=== PATIENT | male | born 1950 | race Caucasian/White ===

== ENCOUNTER 2016-03-27 11:18 | Day surgery (SDC) | payer MEDICARE, OTHER ==
[2016-03-27] MEDS ORDERED: LACTATED RINGERS 1,000 ML IV ONE ×3 (11:32→12:48)
[2016-03-27] MEDS ORDERED: MIDAZOLAM 2 MG/2 ML VIAL IVP ONE (12:20)
[2016-03-27] MEDS ORDERED: fentaNYL 250 MCG/5 ML VIAL IVP ONE (12:20)
== END 2016-03-27 11:19 | disposition home or self-care (01) ==
PROC: 0DBL8ZZ Excision of Transverse Colon, Via Natural or Artificial Opening Endoscopic (ICD-10-PCS; principal; 2016-03-27 13:30)
DX: Z12.11 Encounter for screening for malignant neoplasm of colon (principal); D12.3 Benign neoplasm of transverse colon; K57.30 Diverticulosis of large intestine without perforation or abscess without bleeding; Q27.33 Arteriovenous malformation of digestive system vessel; K64.8 Other hemorrhoids
CPT/HCPCS: 45385; J3010; J7120

== ENCOUNTER 2016-05-29 13:48 | Outpatient (CLI) | payer MEDICARE, OTHER | END 2016-05-29 13:49 | disposition home or self-care (01) | DX: I10 Essential (primary) hypertension (principal); N40.0 Benign prostatic hyperplasia without lower urinary tract symptoms; F32.9 Major depressive disorder, single episode, unspecified ==

== ENCOUNTER 2016-10-30 08:00 | Outpatient (CLI) | payer MEDICARE, OTHER ==
[2016-10-30 18:49] LABS: BASOPHILS % (AUTO) 0.7 %; EOSINOPHILS # (AUTO) 0.1 10^3/uL (0.0-0.7); HCT - HEMATOCRIT 38.8 % (42.0-52.0); HGB - HEMOGLOBIN 13.4 g/dL (14.0-18.0); LYMPHOCYTES # (AUTO) 1.8 10^3/uL (1.5-3.5); LYMPHOCYTES % (AUTO) 38.5 %; MEAN CORPUSCULAR HEMOGLOBIN 31.3 pg (27.0-31.0); MEAN CORPUSCULAR HGB CONC 34.6 g/dL (32.0-36.0); MEAN CORPUSCULAR VOLUME 90.4 fL (80.0-94.0); MEAN PLATELET VOLUME 8.4 fL (7.4-11.4); MONOCYTES # (AUTO) 0.6 10^3/uL (0.0-1.0); MONOCYTES % (AUTO) 12.2 %; NEUTROPHILS # (AUTO) 2.1 10^3/uL (1.5-6.6); NEUTROPHILS % (AUTO) 45.6 %; NUCLEATED RED BLOOD CELLS AUTO 0.1 /100WBC; RED BLOOD COUNT 4.29 10^6/uL (4.70-6.10); RED CELL DISTRIBUTION WIDTH 12.7 % (12.0-15.0); UNCORRECTED WHITE BLOOD COUNT 4.7 x10^3/uL; WHITE BLOOD COUNT 4.7 x10^3/uL (4.8-10.8)
[2016-10-30 19:02] LABS: ALBUMIN/GLOBULIN RATIO 1.7 (1.0-2.2); BILIRUBIN,TOTAL 0.7 mg/dL (0.2-1.0); CALCIUM 9.2 mg/dL (8.5-10.3); POTASSIUM 4.3 mmol/L (3.5-5.0); TOTAL PROTEIN 6.5 g/dL (6.7-8.2)
== END 2016-10-30 08:01 | disposition home or self-care (01) ==
LOC: LAB.S 08:00
PROVIDERS: ATTEND Nurse Practitioner Family
DX: E87.1 Hypo-osmolality and hyponatremia (principal); D64.9 Anemia, unspecified
CPT/HCPCS: 36415; 80053; 85025

== ENCOUNTER 2016-11-03 13:37 | Outpatient (CLI) | payer MEDICARE, OTHER ==
[2016-11-03 18:33] LABS: CALCIUM 9.3 mg/dL (8.5-10.3); POTASSIUM 4.2 mmol/L (3.5-5.0)
== END 2016-11-03 13:38 | disposition home or self-care (01) ==
LOC: LAB.F 13:37
PROVIDERS: ATTEND Nurse Practitioner Family
DX: E87.1 Hypo-osmolality and hyponatremia (principal)
CPT/HCPCS: 36415; 80048

== ENCOUNTER 2016-11-08 15:47 | Outpatient (CLI) | payer MEDICARE, OTHER ==
[2016-11-08 18:12] LABS: CALCIUM 9.4 mg/dL (8.5-10.3); CREATININE 1.3 mg/dL (0.6-1.2)
== END 2016-11-08 15:48 | disposition home or self-care (01) ==
LOC: LAB.F 15:47
PROVIDERS: ATTEND Nurse Practitioner Family
DX: E87.1 Hypo-osmolality and hyponatremia (principal)
CPT/HCPCS: 36415; 80048

== ENCOUNTER 2016-11-27 07:01 | Outpatient (CLI) | payer MEDICARE, OTHER ==
[2016-11-27 18:44] LABS: CREATININE 1.1 mg/dL (0.6-1.2); POTASSIUM 3.9 mmol/L (3.5-5.0)
== END 2016-11-27 07:02 | disposition home or self-care (01) ==
LOC: LAB.S 07:01
PROVIDERS: ATTEND Nurse Practitioner Family
DX: E87.1 Hypo-osmolality and hyponatremia (principal)
CPT/HCPCS: 36415; 80048

== ENCOUNTER 2017-02-20 10:25 | Outpatient (CLI) | payer MEDICARE, OTHER ==
[2017-02-20 17:50] LABS: CALCIUM 10.1 mg/dL (8.5-10.3); CREATININE 1.3 mg/dL (0.6-1.2); POTASSIUM 4.3 mmol/L (3.5-5.0)
== END 2017-02-20 10:26 | disposition home or self-care (01) ==
LOC: LAB.F 10:25
PROVIDERS: ATTEND Nurse Practitioner Family
DX: E87.1 Hypo-osmolality and hyponatremia (principal)
CPT/HCPCS: 36415; 80048

== ENCOUNTER 2017-05-21 21:34 | Outpatient (CLI) | payer MEDICARE, OTHER ==
[2017-05-21 17:43] LABS: BASOPHILS % (AUTO) 0.8 %; EOSINOPHILS # (AUTO) 0.1 10^3/uL (0.0-0.7); EOSINOPHILS % (AUTO) 2.8 %; HGB - HEMOGLOBIN 12.7 g/dL (14.0-18.0); LYMPHOCYTES % (AUTO) 40.8 %; MEAN CORPUSCULAR HEMOGLOBIN 30.4 pg (27.0-31.0); MEAN CORPUSCULAR HGB CONC 33.6 g/dL (32.0-36.0); MEAN CORPUSCULAR VOLUME 90.5 fL (80.0-94.0); MEAN PLATELET VOLUME 8.6 fL (7.4-11.4); MONOCYTES # (AUTO) 0.6 10^3/uL (0.0-1.0); MONOCYTES % (AUTO) 11.8 %; NEUTROPHILS # (AUTO) 2.2 10^3/uL (1.5-6.6); NEUTROPHILS % (AUTO) 43.8 %; PLT - PLATELET COUNT 228 10^3/uL (130-450); RED BLOOD COUNT 4.18 10^6/uL (4.70-6.10); RED CELL DISTRIBUTION WIDTH 12.9 % (12.0-15.0)
[2017-05-21 18:06] LABS: ALBUMIN 3.8 g/dL (3.2-5.5); ALBUMIN/GLOBULIN RATIO 1.5 (1.0-2.2); BILIRUBIN,TOTAL 0.6 mg/dL (0.2-1.0); CALCIUM 9.4 mg/dL (8.5-10.3); TOTAL PROTEIN 6.3 g/dL (6.7-8.2)
== END 2017-05-21 21:35 | disposition home or self-care (01) ==
LOC: LAB.S 21:34
PROVIDERS: ATTEND Nurse Practitioner Family
DX: E87.1 Hypo-osmolality and hyponatremia (principal); E21.3 Hyperparathyroidism, unspecified; Z85.528 Personal history of other malignant neoplasm of kidney
CPT/HCPCS: 36415; 80053; 85025

== ENCOUNTER 2017-06-22 13:31 | Outpatient (CLI) | payer MEDICARE, OTHER ==
[2017-06-22 17:44] LABS: BASOPHILS % (AUTO) 0.6 %; EOSINOPHILS # (AUTO) 0.1 10^3/uL (0.0-0.7); EOSINOPHILS % (AUTO) 2.1 %; HGB - HEMOGLOBIN 12.3 g/dL (14.0-18.0); LYMPHOCYTES # (AUTO) 1.8 10^3/uL (1.5-3.5); LYMPHOCYTES % (AUTO) 28.2 %; MEAN CORPUSCULAR HEMOGLOBIN 31.1 pg (27.0-31.0); MEAN CORPUSCULAR HGB CONC 34.7 g/dL (32.0-36.0); MEAN CORPUSCULAR VOLUME 89.6 fL (80.0-94.0); MEAN PLATELET VOLUME 8.9 fL (7.4-11.4); MONOCYTES # (AUTO) 0.6 10^3/uL (0.0-1.0); NEUTROPHILS # (AUTO) 3.8 10^3/uL (1.5-6.6); NEUTROPHILS % (AUTO) 60.1 %; PLT - PLATELET COUNT 199 10^3/uL (130-450); RED BLOOD COUNT 3.97 10^6/uL (4.70-6.10); RED CELL DISTRIBUTION WIDTH 12.3 % (12.0-15.0); WHITE BLOOD COUNT 6.3 x10^3/uL (4.8-10.8)
[2017-06-22 18:30] LABS: % IRON SATURATION 24 % (20-50); IRON 79 ug/dL (45-182); TOTAL IRON BINDING CAPACITY 325 ug/dL (250-450); TRANSFERRIN 232 mg/dL (180-329)
[2017-06-22 18:32] LABS: THYROID STIMULATING HORMONE 3.14 uIU/mL (0.34-5.60)
[2017-06-22 18:39] LABS: FERRITIN 124.4 ng/mL (23.9-336.2)
== END 2017-06-22 13:32 | disposition home or self-care (01) ==
LOC: LAB.F 13:31
PROVIDERS: ATTEND Nurse Practitioner Family
DX: D64.9 Anemia, unspecified (principal); Z12.5 Encounter for screening for malignant neoplasm of prostate
CPT/HCPCS: 82607; 82728; 83540; 84443; 84466; 85025; G0103; 36415; 84153

== ENCOUNTER 2017-07-25 13:23 | Outpatient (CLI) | payer MEDICARE, OTHER ==
[2017-07-25 18:04] LABS: CALCIUM 8.9 mg/dL (8.5-10.3)
== END 2017-07-25 13:24 | disposition home or self-care (01) ==
LOC: LAB.F 13:23
PROVIDERS: ATTEND Nurse Practitioner Family
DX: E87.1 Hypo-osmolality and hyponatremia (principal)
CPT/HCPCS: 36415; 80048

== ENCOUNTER 2017-08-03 08:42 | Outpatient (CLI) | payer MEDICARE, OTHER ==
--- NOTE | 2017-08-03 13:55 | XRAY Report ---
TWO VIEW CHEST: 08/03/2017 CLINICAL INDICATION: Hyponatremia. COMPARISON: Frontal and lateral views of the chest are compared to previous films of 05/12/2014. FINDINGS: The cardiac silhouette is within normal limits. The lungs remain hyperinflated, but clear. No pulmonary nodule or mass lesion is seen. No effusion or pneumothorax is present. IMPRESSION: STABLE HYPERINFLATION. TD: 08/03/2017 11:21
== END 2017-08-03 08:43 | disposition home or self-care (01) ==
LOC: DI.S 08:42
PROVIDERS: ATTEND Nurse Practitioner Family
DX: J98.4 Other disorders of lung (principal)
CPT/HCPCS: 71046

== ENCOUNTER 2017-08-09 13:15 | Outpatient (CLI) | payer MEDICARE, OTHER ==
[2017-08-09 17:46] LABS: BASOPHILS % (AUTO) 0.4 %; EOSINOPHILS # (AUTO) 0.1 10^3/uL (0.0-0.7); EOSINOPHILS % (AUTO) 1.5 %; HGB - HEMOGLOBIN 12.8 g/dL (14.0-18.0); LYMPHOCYTES # (AUTO) 1.7 10^3/uL (1.5-3.5); LYMPHOCYTES % (AUTO) 19.4 %; MEAN CORPUSCULAR HEMOGLOBIN 30.8 pg (27.0-31.0); MEAN CORPUSCULAR HGB CONC 33.8 g/dL (32.0-36.0); MEAN CORPUSCULAR VOLUME 91.3 fL (80.0-94.0); MONOCYTES # (AUTO) 0.8 10^3/uL (0.0-1.0); MONOCYTES % (AUTO) 8.8 %; NEUTROPHILS # (AUTO) 6.2 10^3/uL (1.5-6.6); NEUTROPHILS % (AUTO) 69.9 %; PLT - PLATELET COUNT 207 10^3/uL (130-450); RED BLOOD COUNT 4.14 10^6/uL (4.70-6.10); RED CELL DISTRIBUTION WIDTH 12.9 % (12.0-15.0); WHITE BLOOD COUNT 8.9 x10^3/uL (4.8-10.8)
[2017-08-09 18:41] LABS: ALBUMIN 3.9 g/dL (3.2-5.5); ALBUMIN/GLOBULIN RATIO 1.6 (1.0-2.2); BILIRUBIN,TOTAL 0.6 mg/dL (0.2-1.0); TOTAL PROTEIN 6.3 g/dL (6.7-8.2)
== END 2017-08-09 13:16 | disposition home or self-care (01) ==
LOC: LAB.F 13:15
PROVIDERS: ATTEND Nurse Practitioner Family
DX: R97.20 Elevated prostate specific antigen [PSA] (principal); E87.1 Hypo-osmolality and hyponatremia
CPT/HCPCS: 36415; 80053; 82607; 83519; 83970; 85025

== ENCOUNTER 2017-11-02 20:14 | Emergency (ER) | payer MEDICARE, OTHER ==
[2017-11-02 20:27] VITALS: BP 155/74
--- NOTE | 2017-11-02 21:35 | ED Physician Documentation ---
PD HPI UPPER EXT INJURY - Stated complaint Stated Complaint: RT THUMB INJ - Chief complaint Chief Complaint: Laceration - History obtained from History obtained from: Patient - History of Present Illness Location: Right, Finger (thumb tip, not at nailbed.) Type of injury: Laceration (cleaning a knife and it slipped and cut his thumb tip. It bled well and seemed deep, so to ER. It has stopped bleeding enroute and appears closed here in ED.) Where injury occurred: Home Timing - onset: Today Timing - details: Abrupt onset Worsened by: Palpating Associated symptoms: No: Weakness, Numbness Similar symptoms before: Has not had sx before Recently seen: Not recently seen Review of Systems Skin: reports: Laceration (s). denies: Rash, Abrasion (s) Neurologic: denies: Focal weakness, Numbness, Near syncope PD PAST MEDICAL HISTORY - Past Medical History Past Medical History: Yes Cardiovascular: Hypertension Respiratory: None Endocrine/Autoimmune: None GI: None : None HEENT: None Psych: None Musculoskeletal: Osteoarthritis Derm: None - Past Surgical History Past Surgical History: Yes General: Colonoscopy Ortho: Hip replacement Neuro: Other HEENT: Cataracts, Tonsil/Adenoidectomy - Present Medications Home Medications: Ambulatory Orders Medication Instructions Recorded Confirmed Amlodipine Besylate 5 mg PO DAILY 05/25/14 03/24/16 - Allergies Allergies/Adverse Reactions: Allergies Allergy/AdvReac Type Severity Reaction Status Date / Time codeine [Codeine] AdvReac Intermediate Nausea Verified 11/02/17 20:29 - Social History Does the pt smoke?: No Smoking Status: Never smoker Does the pt drink ETOH?: No Does the pt have substance abuse?: No - Immunizations Immunizations are current?: Yes - POLST Patient has POLST: No PD ED PE NORMAL - Vitals Vital signs reviewed: Yes - General General: Alert and oriented X 3, No acute distress, Well developed/nourished - Derm Derm: Normal color, Warm and dry - Extremities Extremities: Other (right thumb with clean edged lac, no FB and no bleeding at this time. Edges are approximated. The lac is distal palmar fat pad. Does not cross IP area and is not at nailbed. ) - Neuro Neuro: No motor deficit, No sensory deficit Results - Vitals Vitals: Oxygen O2 Source [With Activity] Room air O2 Source [Without Activity] Room air O2 Source Room air PD MEDICAL DECISION MAKING - ED course Complexity details: considered differential (the lac is sharp edged and has closed well with pressure and early clotting. It does not cross joint. It can be treated with steristrips and glue. ), d/w patient - Sepsis Event Vital Signs: Oxygen O2 Source [With Activity] Room air O2 Source [Without Activity] Room air O2 Source Room air Departure - Departure Disposition: 01 Home, Self Care Clinical Impression: Thumb laceration Qualifiers: Encounter type: initial encounter Damage to nail status: without damage Foreign body presence: without foreign body Laterality: right Qualified Code(s) : S61.011A - Laceration without foreign body of right thumb without damage to nail, initial encounter Condition: Stable Record reviewed to determine appropriate education?: Yes Instructions: ED Laceration Hand Follow-Up: Tiffani Perkins ARNP [Primary Care Provider] - Comments: Keep the area clean and dry. Allow the glue and Steri-Strips to fall off on their own after several days or more. That should be time enough for this to seal up. Use Tylenol or ibuprofen if needed for pains. Recheck if signs of infection. Discharge Date/Time: 11/02/17 22:08
== END 2017-11-02 22:08 | disposition home or self-care (01) ==
LOC: ED 20:14
DX: S61.011A Laceration without foreign body of right thumb without damage to nail, initial encounter (principal); I10 Essential (primary) hypertension; W26.0XXA Contact with knife, initial encounter; Y92.009 Unspecified place in unspecified non-institutional (private) residence as the place of occurrence of the external cause
CPT/HCPCS: 99282; 99283

== ENCOUNTER 2017-12-18 13:40 | Outpatient (CLI) | payer MEDICARE, OTHER | END 2017-12-18 13:41 | disposition home or self-care (01) | LOC: RT.S 13:40 | PROVIDERS: ATTEND Nurse Practitioner Family | DX: Z01.810 Encounter for preprocedural cardiovascular examination (principal); M16.12 Unilateral primary osteoarthritis, left hip | CPT/HCPCS: 93005 ==

== ENCOUNTER 2017-12-19 07:17 | Outpatient (CLI) | payer MEDICARE, OTHER ==
[2017-12-19 11:08] LABS: BASOPHILS % (AUTO) 0.2 %; EOSINOPHILS # (AUTO) 0.2 10^3/uL (0.0-0.7); EOSINOPHILS % (AUTO) 2.7 %; HGB - HEMOGLOBIN 13.2 g/dL (14.0-18.0); LYMPHOCYTES # (AUTO) 1.1 10^3/uL (1.5-3.5); LYMPHOCYTES % (AUTO) 12.6 %; MEAN CORPUSCULAR HEMOGLOBIN 32.1 pg (27.0-31.0); MEAN CORPUSCULAR HGB CONC 34.5 g/dL (32.0-36.0); MEAN CORPUSCULAR VOLUME 92.9 fL (80.0-94.0); MEAN PLATELET VOLUME 9.3 fL (7.4-11.4); MONOCYTES # (AUTO) 0.9 10^3/uL (0.0-1.0); MONOCYTES % (AUTO) 10.1 %; NEUTROPHILS # (AUTO) 6.5 10^3/uL (1.5-6.6); NEUTROPHILS % (AUTO) 74.4 %; PLT - PLATELET COUNT 235 10^3/uL (130-450); RED BLOOD COUNT 4.12 10^6/uL (4.70-6.10); RED CELL DISTRIBUTION WIDTH 12.5 % (12.0-15.0); WHITE BLOOD COUNT 8.7 x10^3/uL (4.8-10.8)
[2017-12-19 11:20] LABS: ALBUMIN 4.2 g/dL (3.2-5.5); ALBUMIN/GLOBULIN RATIO 1.6 (1.0-2.2); ALKALINE PHOSPHATASE 72 IU/L (42-121); ALT ALANINE AMINOTRANSFERASE 23 IU/L (10-60); AST ASPARTATE AMINOTRANSFERASE 21 IU/L (10-42); BILIRUBIN,TOTAL 0.8 mg/dL (0.2-1.0); BUN - BLOOD UREA NITROGEN 20 mg/dL (6-20); CALCIUM 9.4 mg/dL (8.5-10.3); CARBON DIOXIDE - CO2 29 mmol/L (21-32); CHLORIDE 103 mmol/L (101-111); CHOL/HDL RATIO 3.1 (<5.0); CHOLESTEROL 144 mg/dL; GFR - MDRD 74 (>89); GLUCOSE 96 mg/dL (70-100); HDL CHOLESTEROL 47 mg/dL; LDL CHOLESTEROL,CALCULATED 86 mg/dL; LDL/HDL RATIO 1.8 (<3.6); SODIUM 138 mmol/L (135-145); TOTAL PROTEIN 6.9 g/dL (6.7-8.2); VLDL CHOLESTEROL 11 mg/dL
== END 2017-12-19 07:18 | disposition home or self-care (01) ==
LOC: LAB.F 07:17
PROVIDERS: ATTEND Nurse Practitioner Family
DX: E87.1 Hypo-osmolality and hyponatremia (principal); I10 Essential (primary) hypertension; D64.9 Anemia, unspecified
CPT/HCPCS: 36415; 80053; 80061; 83721; 85025

== ENCOUNTER 2018-01-28 08:58 | Outpatient (CLI) | payer MEDICARE, OTHER | END 2018-01-28 08:59 | disposition home or self-care (01) | LOC: LAB 08:58 | PROVIDERS: ATTEND Orthopaedic Surgery | DX: Z01.812 Encounter for preprocedural laboratory examination (principal); M16.12 Unilateral primary osteoarthritis, left hip | CPT/HCPCS: 36415; 86850; 86900; 86901 ==

== ENCOUNTER 2018-01-29 08:56 | Inpatient (IN) | payer MEDICARE, OTHER ==
[~2018-01-29 08:56] MED LIST: LACTATED RINGERS 1,000 ML IV ONE; ceFAZolin 2 GM/50 ML 2 GM/50 ML BAG IV ONE
[2018-01-29] MEDS ORDERED: EPINEPHrine 1 MG/ML AMP ONE (09:02)
[2018-01-29] MEDS ORDERED: ROPIVACAINE 0.5% PF 20 ML AMPULE ONE (09:03)
[2018-01-29] MEDS ORDERED: KETOROLAC 15 MG/ML VIAL ONE (09:03)
[2018-01-29] MEDS ORDERED: BUPIVACAINE 0.5%-EPI 1:200000 PF 30 ML VIAL ONE (09:05)
--- NOTE | 2018-01-29 09:22 | ANESTHESIA ---
Pre-Anesthesia VS, & Labs - Diagnosis Left hip osteoarthritis - Procedure Left hip anterior arthroplasty Height 5 ft 9 in Body Mass Index 27.3 - Lab Results Lab results reviewed: Yes Home Medications and Allergies Amlodipine Besylate 5 mg PO DAILY 05/25/14 Allergies/Adverse Reactions: Allergies Allergy/AdvReac Type Severity Reaction Status Date / Time codeine [Codeine] AdvReac Intermediate Nausea Verified 11/02/17 20:29 Anes History & Medical History - Anesthetic History Anesthesia Complications: reports: No previous complications, Post-Operative Nausea/Vomiting Family history of Anesthesia Complications: Denies Family history of Malignant Hyperthermia: Denies - Medical History Cardiovascular: reports: Hypertension Pulmonary: reports: None Gastrointestinal: reports: None Urinary: reports: None, Benign prostate hypertrophy Neuro: reports: Other (Anxiety, claustrophobia) Musculoskeletal: reports: Osteoarthritis, Chronic back pain Endocrine/Autoimmune: reports: None Blood Disorders: reports: None Skin: reports: None Smoking Status: Former smoker Psychosocial: reports: Anxiety - Surgical History General: Colonoscopy Eyes Ears Nose Throat (EENT): Cataracts, Tonsil/Adenoidectomy Urologic: Nephrectomy, Prostatic surgery Neurologic: Other (Back infusion) Orthopedic: Hip replacement Exam General: Alert, Oriented x3 Dental: WNL Mouth Opening: Greater than 4 Fingerbreadths Neck Mobility: Normal Mallampati classification: II Thyromental Distance: greater than 6 cm Respiratory: Lungs clear Cardiovascular: Regular rate Neurological: Normal speech Mental/Cognitive Status: Alert/Oriented X3 Cognitive Status: Within normal limits Plan Anesthesia Type: General Consent for Procedure(s) Verified and Reviewed: Yes Code Status: Attempt Resuscitation ASA classification: 2-Mild systemic disease Is this case an emergency?: No
--- NOTE | 2018-01-29 09:42 | ANESTHESIA ---
Pre-Anesthesia VS, & Labs - Diagnosis Left hip osteoarthritis - Procedure Left hip anterior arthroplasty Height 5 ft 9 in Body Mass Index 27.3 - NPO >8 hours - Lab Results Fish Bones: 01/31/18 05:35 01/30/18 05:45 Home Medications and Allergies Home Medications: Ambulatory Orders Ibuprofen [Advil] 200 - 400 mg PO Q6H PRN 01/30/18 Amlodipine Besylate 5 mg PO DAILY 05/25/14 Allergies/Adverse Reactions: Allergies Allergy/AdvReac Type Severity Reaction Status Date / Time codeine [Codeine] AdvReac Intermediate Nausea Verified 01/29/18 09:47 Anes History & Medical History - Anesthetic History Anesthesia Complications: reports: No previous complications - Medical History Cardiovascular: reports: Hypertension Pulmonary: reports: None Gastrointestinal: reports: None Urinary: reports: None Neuro: reports: None Musculoskeletal: reports: Osteoarthritis, Chronic back pain Endocrine/Autoimmune: reports: None Blood Disorders: reports: None Skin: reports: None Smoking Status: Never smoker Psychosocial: reports: No issues indicated - Surgical History General: Colonoscopy Eyes Ears Nose Throat (EENT): Cataracts, Tonsil/Adenoidectomy Urologic: Nephrectomy, Prostatic surgery Neurologic: Other Orthopedic: Hip replacement Exam General: Alert Mouth Opening: Greater than 4 Fingerbreadths Neck Mobility: Normal Mallampati classification: II Thyromental Distance: greater than 6 cm Respiratory: Lungs clear Cardiovascular: Regular rate Plan Anesthesia Type: General Consent for Procedure(s) Verified and Reviewed: Yes Code Status: Attempt Resuscitation ASA classification: 2-Mild systemic disease Is this case an emergency?: No
[2018-01-29] MEDS ORDERED: EPINEPHrine 1 MG/ML AMP IVP ONE (11:07)
[2018-01-29] MEDS ORDERED: MORPHINE PF 5 MG/10 ML AMP SUBQ ONE (11:07)
[2018-01-29] MEDS ORDERED: ROPIVACAINE 0.2% PF 20 ML AMPULE SUBQ ONE (11:07)
[2018-01-29] MEDS ORDERED: KETOROLAC 15 MG/ML VIAL IVP ONE (11:07)
[2018-01-29] MEDS ORDERED: BUPIVACAINE 0.5%-EPI 1:200000 PF 10 ML VIAL SUBQ ONE ×2 (11:08)
[2018-01-29] MEDS ORDERED: LACTATED RINGERS 1,000 ML IV ONE (11:19)
--- NOTE | 2018-01-29 12:46 | OPERATIVE REPORT ---
Operative Report - General Admit Date: 01/29/18 Procedure Date: 01/29/18 Planned Procedure: Left total hip arthroplasty Pre-Op Diagnosis: DJD left hip Procedure Performed: Left total hip arthroplasty Post Op Diagnosis: same - Procedure Note Primary Surgeon: gilmar Anesthesia Provider: Gen Dr. quintanilla Anesthesia Technique: General ET tube Estimated Blood Loss (mL): 200
[2018-01-29] MEDS ORDERED: ONDANSETRON 4 MG/2 ML VIAL IVP PRN (12:47)
[2018-01-29] MEDS ORDERED: BISACODYL 10 MG SUPP PR PRN (12:47)
[2018-01-29] MEDS ORDERED: PROCHLORPERAZINE 10 MG/2 ML VIAL IVP PRN (12:47)
[2018-01-29] MEDS ORDERED: PROPOFOL 200 MG/20 ML VIAL IVP ONE (12:51)
[2018-01-29] MEDS ORDERED: ONDANSETRON 4 MG/2 ML VIAL IVP ONE (12:51)
[2018-01-29] MEDS ORDERED: ceFAZolin 2 GM/50 ML 2 GM/50 ML BAG IV ONE (12:51)
[2018-01-29] MEDS ORDERED: ePHEDrine 50 MG/ML VIAL IVP ONE (12:51)
[2018-01-29] MEDS ORDERED: GLYCOPYRROLATE 1 MG/5 ML VIAL IVP ONE (12:51)
[2018-01-29] MEDS ORDERED: MORPHINE 10 MG/ML VIAL IVP ONE (12:51)
[2018-01-29] MEDS ORDERED: ROCURONIUM 50 MG/5 ML VIAL IVP ONE (12:51)
[2018-01-29] MEDS ORDERED: fentaNYL 100 MCG/2 ML VIAL IVP ONE (12:51)
[2018-01-29] MEDS ORDERED: TRANEXAMIC ACID 1,000 MG/10 ML VIAL IV ONE (12:51)
[2018-01-29] MEDS ORDERED: ceFAZolin 2 GM/50 ML 2 GM/50 ML BAG IV SCH (13:00)
[2018-01-29] MEDS: HYDROmorphone 0.5 MG/0.5 ML SYRINGE IVP PRN (13:09)
[2018-01-29] MEDS ORDERED: HYDROmorphone 0.5 MG/0.5 ML SYRINGE ONE ×2 (13:10→13:18)
[2018-01-29] MEDS ORDERED: ONDANSETRON 4 MG/2 ML VIAL ONE (13:26)
[2018-01-29] MEDS ORDERED: fentaNYL 100 MCG/2 ML VIAL ONE (13:36)
[2018-01-29] MEDS ORDERED: KETOROLAC 30 MG/ML VIAL ONE (13:41)
[2018-01-29] MEDS ORDERED: ACETAMINOPHEN 1,000 MG/100 ML 100 ML IV ONE (13:41)
--- NOTE | 2018-01-29 13:49 | XRAY Report ---
Reason: post op Procedure Date: 01/29/2018 Accession Number: [id number] / [id number] Procedure: XR - Hip w/Pelvis 2-3V LT CPT Code: FULL RESULT: EXAM: LEFT HIP AND PELVIS RADIOGRAPHY EXAM DATE: 01/29/2018 01:08 PM. HISTORY: Severe left hip osteoarthritis. Status post left total hip arthroplasty. COMPARISONS: Pelvis and left hip radiography performed on 11/28/2017. TECHNIQUE: 1 view of the pelvis and 2 views of the left hip. FINDINGS: Bones: Normal bone mineralization. No fracture. No focal bone lesion. Postsurgical changes in the lower lumbar spine and both hips. Joints: Symmetric mild degenerative changes in both sacroiliac joints. Stable post operative changes involving the right hip, compatible with right total hip arthroplasty. Interval total left hip arthroplasty with no evidence of loosening of the orthopedic hardware. Postsurgical changes in the left hip joint. Soft Tissues: Soft tissue swelling and soft tissue gas in the lateral left hip soft tissues, with no inappropriate radiopaque foreign object. IMPRESSION: 1. Status post left total hip arthroplasty. No dislocation. 2. Postsurgical changes in the lateral left hip soft tissues and the left hip joint with no inappropriate radiopaque foreign object. 3. Chronic postsurgical changes involving the lower lumbar spine and right hip. RADIA
[2018-01-29] MEDS: LACTATED RINGERS 1,000 ML IV SCH (14:15)
[2018-01-29] MEDS: ACETAMINOPHEN 325 MG TABLET PO PRN (15:50)
--- NOTE | 2018-01-29 16:03 | OPERATIVE REPORT ---
DATE OF SERVICE: 01/29/2018 Physician: Jacob Kumar MD PREOPERATIVE DIAGNOSIS: Left hip osteoarthritis. POSTOPERATIVE DIAGNOSIS: Left hip osteoarthritis. PROCEDURE PERFORMED: Left total hip replacement arthroplasty. OPERATING SURGEON: Jacob Kumar MD ANESTHESIA: General. INDICATIONS FOR SURGERY: The patient is a 67-year-old male with progressive severe osteoarthritis of his left hip. He has had a prior successful right total hip arthroplasty and now presents for the l eft side. He has noted diminishing ability to ambulate and constant hip pain. FINDINGS AT SURGERY: The patient's hip on exposure had an effusion and severe [id number] articulat ion of the superior aspect of the femoral head, which was misshapen. There were prominent osteophyte s and cystic changes in the acetabulum and in the femoral head. DESCRIPTION OF OPERATIVE PROCEDURE: The patient was taken to the operating room and was given a gene ral anesthetic. He was positioned supine and very carefully positioned for anterior hip arthroplasty , including moving his torso to the side of the bed, elevating his sacrum, placing plastic drapes and a loin cloth essentially over his groin so that both lower extremities could be prepped. When this was accomplished, surgical time-out was undertaken and then a surgical approach was delineated extend ing down from the anterior inferior iliac spine towards the femur 8 cm in length. This incision was m elfego through skin and then dissection taken down to the fascia over the tensor fascia, which was eleva justyn medially allowing a direct anterior approach to the hip. This incision was then deepened down to the capsule of the hip releasing fascial bands and cauterizing the crossing vessels. Retractors were positioned around the hip to allow exposure of the capsule, which was excised on its anterior aspect looping around the anterior part of the glenoid and along the intertrochanteric line. Retractors we re then repositioned inside of the capsule to allow exposure of the femoral neck, and when this was e xposed a saw was used to remove a napkin ring segment of the femoral neck and then allow placement of a corkscrew in the femoral head and we extracted the femoral head completely. The acetabulum was th en exposed with retraction and releases of the surrounding tissue. Once it was adequately exposed, r taylor progressed up to accommodate a size 54 outer diameter shell, and this shell was stable and imp lanted and was stable without a screw, but a security screw was placed, 35 mm in length. A standard non-cisneros liner was placed, and after this the releases were done around the femur and proper retracti on was placed to elevate and abduct the proximal femur to be exposed in the wound and allow a canal f elsa to go down the hip, down the central medullary canal, followed by broaching up to accommodate t he 14 mm diameter stem. A trial reduction was performed off the stem and was extremely stable with a standard offset standard neck, 40 mm head. Therefore, the components were removed and the implant w as placed, followed by the irrigation and retesting of limb lengths and stability, which were excelle nt. At the conclusion of this, with proper implants in place, his wound was closed using interrupted Vicryl closure of the fascial layer, followed by a buried interrupted closure of subcutaneous tissue and Monocryl closure of skin with application of a silver containing dressing. The patient was taken to the recovery room then in stable condition. An estimated blood loss was approximately 200 mL COMPLICATIONS: None. COUNTS: Sponge and needle counts were correct. TD: 01/29/2018 14:33
[2018-01-29] MEDS: ceFAZolin 2 GM/50 ML 2 GM/50 ML BAG IV SCH (17:58)
[2018-01-29] MEDS: ASPIRIN 325 MG TABLET PO SCH (17:58)
[2018-01-29] MEDS: KETOROLAC 30 MG/ML VIAL IVP PRN (18:15)
[2018-01-29] MEDS: SODIUM CHLORIDE FLUSH 0.9% 10 ML SYRINGE IVP SCH (18:16)
[2018-01-30] MEDS: KETOROLAC 30 MG/ML VIAL IVP PRN ×2 (00:17→07:36)
[2018-01-30] MEDS: LACTATED RINGERS 1,000 ML IV SCH ×3 (00:17→20:01)
[2018-01-30] MEDS: SODIUM CHLORIDE FLUSH 0.9% 10 ML SYRINGE IVP SCH ×3 (00:19→15:53)
[2018-01-30] MEDS: ceFAZolin 2 GM/50 ML 2 GM/50 ML BAG IV SCH (02:02)
[2018-01-30] MEDS ORDERED: PHENOL THROAT SPRAY 177 ML MM PRN (04:51)
[2018-01-30] MEDS: HYDROmorphone 0.5 MG/0.5 ML SYRINGE IVP PRN ×2 (05:09→17:37)
[2018-01-30] MEDS: BENZOCAINE/MENTHOL LOZENGE MM PRN ×2 (05:09→07:44)
[2018-01-30 05:57] LABS: BASOPHILS % (AUTO) 0.2 %; EOSINOPHILS # (AUTO) 0.1 10^3/uL (0.0-0.7); EOSINOPHILS % (AUTO) 0.6 %; HGB - HEMOGLOBIN 10.9 g/dL (14.0-18.0); LYMPHOCYTES # (AUTO) 0.7 10^3/uL (1.5-3.5); LYMPHOCYTES % (AUTO) 7.2 %; MEAN CORPUSCULAR HEMOGLOBIN 31.8 pg (27.0-31.0); MEAN CORPUSCULAR HGB CONC 33.7 g/dL (32.0-36.0); MEAN CORPUSCULAR VOLUME 94.2 fL (80.0-94.0); MEAN PLATELET VOLUME 7.7 fL (7.4-11.4); MONOCYTES # (AUTO) 0.8 10^3/uL (0.0-1.0); MONOCYTES % (AUTO) 8.3 %; NEUTROPHILS # (AUTO) 7.7 10^3/uL (1.5-6.6); NEUTROPHILS % (AUTO) 83.7 %; PLT - PLATELET COUNT 174 10^3/uL (130-450); RED BLOOD COUNT 3.42 10^6/uL (4.70-6.10); RED CELL DISTRIBUTION WIDTH 13.1 % (12.0-15.0); WHITE BLOOD COUNT 9.1 x10^3/uL (4.8-10.8)
[2018-01-30 06:05] LABS: CALCIUM 8.3 mg/dL (8.5-10.3); CREATININE 1.2 mg/dL (0.6-1.2)
[2018-01-30] MEDS: oxyCODONE 5 MG TABLET PO PRN ×4 (07:36→23:57)
--- NOTE | 2018-01-30 07:45 | PROVIDER PROGRESS NOTE ---
Subjective - General Admit Date: 01/29/18 Procedure Date: 01/29/18 Post Op Days: 1 Procedure Performed: left total Hip arthroplasty - Review of Systems Wound/Incisions: positive: Dressing dry and intact Musculoskeletal: positive: Joint pain, Joint swelling Objective - Patient Data Reviewed Vital Signs: Yes Vital Signs: Vital Signs x48h Temp Pulse Resp BP Pulse Ox 01/30/18 04:05 36.9 C 65 16 147/77 H 99 01/30/18 00:15 36.7 C 62 16 136/76 H 98 Weight: Weight 01/28/18 01/29/18 01/30/18 23:59 23:59 23:59 Weight (kg) 85.7 kg Intake & Output: Intake and Output Totals x24h 01/28/18 01/29/18 01/30/18 23:59 23:59 23:59 Intake Total 2587 1350 Output Total 200 600 Balance 2387 750 - Lab Results Lab Results: 01/30/18 05:45 01/30/18 05:45 Other Lab Results: Lab Results x24hrs 01/30/18 01/30/18 Range/Units 05:45 05:45 WBC 9.1 (4.8-10.8) x10^3/uL RBC 3.42 L (4.70-6.10) 10^6/uL Hgb 10.9 L (14.0-18.0) g/dL Hct 32.2 L (42.0-52.0) % MCV 94.2 H (80.0-94.0) fL MCH 31.8 H (27.0-31.0) pg MCHC 33.7 (32.0-36.0) g/dL RDW 13.1 (12.0-15.0) % Plt Count 174 (130-450) 10^3/uL MPV 7.7 (7.4-11.4) fL Neut # (Auto) 7.7 H (1.5-6.6) 10^3/uL Lymph # (Auto) 0.7 L (1.5-3.5) 10^3/uL Isabela # (Auto) 0.8 (0.0-1.0) 10^3/uL Eos # (Auto) 0.1 (0.0-0.7) 10^3/uL Baso # (Auto) 0.0 (0.0-0.1) 10^3/uL Absolute Nucleated RBC 0.00 x10^3/uL Nucleated RBC % 0.0 /100WBC Sodium 130 L (135-145) mmol/L Potassium 3.8 (3.5-5.0) mmol/L Chloride 100 L (101-111) mmol/L Carbon Dioxide 26 (21-32) mmol/L Anion Gap 4.0 L (6-13) BUN 19 (6-20) mg/dL Creatinine 1.2 (0.6-1.2) mg/dL Estimated GFR (MDRD) 60 L (>89) Glucose 122 H (70-100) mg/dL Calcium 8.3 L (8.5-10.3) mg/dL - Imaging Results Radiology Imaging: positive: EMP read indepedently - Current Medications Current Medications: Current Medications Generic Name Dose Route Start Last Admin Trade Name Freq PRN Reason Stop Dose Admin Acetaminophen 650 - 975 mg 01/29/18 12:47 01/29/18 15:50 Tylenol PO 975 mg Q4HR PRN Administration PAIN Aspirin 325 mg 01/29/18 17:00 01/29/18 17:58 Thi PO 325 mg BIDWM MARTIN Administration Hydromorphone HCl 0.5 mg 01/29/18 12:47 01/30/18 05:09 Dilaudid Inj Syringe IVP 0.5 mg Q2H PRN Administration PAIN Lactated Ringer's 1,000 mls @ 100 mls/hr 01/29/18 13:00 01/30/18 00:17 Lr IV 100 mls/hr .Q10H MARTIN Administration Ketorolac Tromethamine 30 mg 01/29/18 17:50 01/30/18 07:36 Toradol Inj (30mg) IVP 02/03/18 17:49 30 mg Q6HR PRN Administration PAIN Ondansetron HCl 4 mg 01/29/18 12:47 01/29/18 13:25 Zofran Inj IVP 4 mg Q6HR PRN Administration Nausea / Vomiting Oxycodone HCl 5 mg 01/29/18 12:47 01/30/18 07:36 Roxicodone PO 5 mg Q4HR PRN Administration PAIN Sodium Chloride 10 ml 01/29/18 17:00 01/30/18 00:19 Normal Saline Flush 0.9% IVP 10 ml 0100,0900,1700 MARTIN Administration Throat Lozenges 1 lozenge 01/30/18 04:51 01/30/18 05:09 Cepacol MM 1 lozenge Q2HR PRN Administration Throat pain - Physical Exam Wound/Incisions: positive: Dressing dry and intact General Appearance: positive: No acute distress Extremities: positive: Joint swelling Neurologic/Psychiatric: positive: Oriented x3, CN's nml (2-12), Motor nml, Sensation nml Impression/Plan - Problem List Problem List: POD #1 pt is doing well, and pain seems to be managed adequately Plan to begin PT and mobilize
[2018-01-30] MEDS ORDERED: KETOROLAC 15 MG/ML VIAL IVP PRN (07:51)
[2018-01-30] MEDS: ASPIRIN 325 MG TABLET PO SCH ×2 (08:48→15:53)
[2018-01-30] MEDS: amLODIPine 5 MG TABLET PO SCH (08:49)
[2018-01-30] MEDS: SODIUM CHLORIDE FLUSH 0.9% 10 ML SYRINGE IVP PRN (17:37)
[2018-01-31] MEDS: SODIUM CHLORIDE FLUSH 0.9% 10 ML SYRINGE IVP SCH ×3 (00:04→15:37)
[2018-01-31] MEDS: LACTATED RINGERS 1,000 ML IV SCH (02:17)
[2018-01-31] MEDS: SODIUM CHLORIDE FLUSH 0.9% 10 ML SYRINGE IVP PRN (04:02)
[2018-01-31] MEDS: oxyCODONE 5 MG TABLET PO PRN ×2 (06:01→15:36)
[2018-01-31 06:14] LABS: HGB - HEMOGLOBIN 9.9 g/dL (14.0-18.0); MEAN CORPUSCULAR HEMOGLOBIN 32.7 pg (27.0-31.0); MEAN CORPUSCULAR HGB CONC 34.8 g/dL (32.0-36.0); MEAN PLATELET VOLUME 8.1 fL (7.4-11.4); RED BLOOD COUNT 3.02 10^6/uL (4.70-6.10); RED CELL DISTRIBUTION WIDTH 12.6 % (12.0-15.0); WHITE BLOOD COUNT 5.7 x10^3/uL (4.8-10.8)
--- NOTE | 2018-01-31 08:10 | PROVIDER PROGRESS NOTE ---
Subjective - General Admit Date: 01/29/18 Procedure Date: 01/29/18 Post Op Days: 2 Procedure Performed: left total Hip arthroplasty - Review of Systems Wound/Incisions: positive: Dressing dry and intact Musculoskeletal: positive: Joint pain, Joint swelling Objective - Patient Data Reviewed Vital Signs: Yes Vital Signs: Vital Signs x48h Temp Pulse Resp BP Pulse Ox 01/31/18 07:22 37.3 C 89 20 141/73 H 93 01/31/18 05:50 36.7 C 83 16 132/88 H 98 Weight: Weight 01/29/18 01/30/18 01/31/18 23:59 23:59 23:59 Weight (kg) 85.7 kg Intake & Output: Intake and Output Totals x24h 01/29/18 01/30/18 01/31/18 23:59 23:59 23:59 Intake Total 2587 3349.333 725.000 Output Total 200 1325 700 Balance 2387 2024.333 25.000 - Lab Results Lab Results: 01/31/18 05:35 01/30/18 05:45 Other Lab Results: Lab Results x24hrs 01/31/18 Range/Units 05:35 WBC 5.7 (4.8-10.8) x10^3/uL RBC 3.02 L (4.70-6.10) 10^6/uL Hgb 9.9 L (14.0-18.0) g/dL Hct 28.4 L (42.0-52.0) % MCV 94.0 (80.0-94.0) fL MCH 32.7 H (27.0-31.0) pg MCHC 34.8 (32.0-36.0) g/dL RDW 12.6 (12.0-15.0) % Plt Count 159 (130-450) 10^3/uL MPV 8.1 (7.4-11.4) fL - Current Medications Current Medications: Current Medications Generic Name Dose Route Start Last Admin Trade Name Freq PRN Reason Stop Dose Admin Acetaminophen 650 - 975 mg 01/29/18 12:47 01/29/18 15:50 Tylenol PO 975 mg Q4HR PRN Administration PAIN Amlodipine Besylate 5 mg 01/30/18 09:00 01/30/18 08:49 Norvasc PO 5 mg DAILY MARTIN Administration Aspirin 325 mg 01/29/18 17:00 01/30/18 15:53 Thi PO 325 mg BIDWM MARTIN Administration Ondansetron HCl 4 mg 01/29/18 12:47 01/29/18 13:25 Zofran Inj IVP 4 mg Q6HR PRN Administration Nausea / Vomiting Oxycodone HCl 5 mg 01/29/18 12:47 01/31/18 06:01 Roxicodone PO 5 mg Q4HR PRN Administration PAIN Sodium Chloride 10 ml 01/29/18 17:00 01/31/18 00:04 Normal Saline Flush 0.9% IVP 10 ml 0100,0900,1700 MARTIN Administration Sodium Chloride 10 ml 01/29/18 12:47 01/31/18 04:02 Normal Saline Flush 0.9% IVP 10 ml PRN PRN Administration NEEDED PER PROVIDER ORDERS Throat Lozenges 1 lozenge 01/30/18 04:51 01/30/18 07:44 Cepacol MM 1 lozenge Q2HR PRN Administration Throat pain - Physical Exam Wound/Incisions: positive: Dressing dry and intact Extremities: positive: Joint swelling Neurologic/Psychiatric: positive: Oriented x3, CN's nml (2-12), Motor nml, Sensation nml, Mood/affect nml Impression/Plan - Problem List Problem List: POD #2 Pt is progressing well but will require better pain management He will have PT today and aim for d/c tomorrow Will phase to PO meds.
[2018-01-31] MEDS: ASPIRIN 325 MG TABLET PO SCH ×2 (08:52→15:37)
[2018-01-31] MEDS: amLODIPine 5 MG TABLET PO SCH (08:52)
[2018-01-31] MEDS ORDERED: SODIUM CHLORIDE FLUSH 0.9% 10 ML SYRINGE ONE (09:45)
[2018-01-31] MEDS: SENNA 8.6 MG TABLET PO PRN (10:20)
[2018-01-31] MEDS ORDERED: MAGNESIUM HYDROXIDE 2,400 MG/30 ML UDC PO ONE (17:45)
[2018-02-01] MEDS ORDERED: CALCIUM CARBONATE CHEW 500 MG TABLET PO PRN (00:34)
[2018-02-01] MEDS: SENNA 8.6 MG TABLET PO PRN (01:07)
[2018-02-01] MEDS: oxyCODONE 5 MG TABLET PO PRN (01:07)
[2018-02-01] MEDS: SODIUM CHLORIDE FLUSH 0.9% 10 ML SYRINGE IVP SCH ×2 (01:10→08:27)
[2018-02-01] MEDS ORDERED: DOCUSATE SODIUM 250 MG CAPSULE PO PRN (05:05)
[2018-02-01] MEDS ORDERED: MAGNESIUM CITRATE 296 ML BOTTLE PO ONE (08:15)
[2018-02-01] MEDS: ACETAMINOPHEN 325 MG TABLET PO PRN (08:26)
[2018-02-01] MEDS: amLODIPine 5 MG TABLET PO SCH (08:27)
[2018-02-01] MEDS: ASPIRIN 325 MG TABLET PO SCH (08:27)
[2018-02-01] MEDS ORDERED: POLYETHYLENE GLYCOL 3350 17 GM PACKET PO SCH (08:30)
--- NOTE | 2018-02-01 11:47 | Discharge Plan ---
Discharge Plan Disposition: 01 Home, Self Care Condition: Good Prescriptions: oxyCODONE [Roxicodone] 5 mg PO Q4HR PRN #30 tablet PRN Reason: Pain Aspirin [Thi] 325 mg PO BIDWM #30 tablet Bisacodyl Supp [Dulcolax Supp] 10 mg NH Q12H PRN #6 supp PRN Reason: Constipation Docusate Sodium 250Mg Capsule [Colace 250Mg Capsule] 250 - 500 mg PO DAILY PRN #20 capsule PRN Reason: Constipation Walker [Ultra-Light Rollator] 1 each MC DAILY #1 each Diet: Regular Activity Restrictions: Wt Bearing as Tolerated Shower Restrictions: Yes (cover hip wound when showering) Driving Restrictions: Yes (no driving) Assistance Devices: Walker Weight Bearing: Full Weight No Smoking: If you smoke, Please STOP! Call for help. Follow-up with: Tiffani Perkins ARNP [Primary Care Provider] - Jacob Kumar MD [Provider Admit Priv/Credential] -
[2018-02-01 12:25] VITALS: BP 114/75
--- NOTE | 2018-02-03 14:32 | DISCHARGE SUMMARY ---
Physician: Jacob Kumar MD DATE OF ADMISSION: 01/29/2018 DATE OF DISCHARGE: 02/01/2018 ADMISSION DIAGNOSES: Left hip osteoarthritis. PROCEDURE: His operative procedure was 01/29/2018, a left total hip arthroplasty. REASON FOR HOSPITALIZATION: The patient is a 67-year-old with severe arthritis of his left hip, who has failed nonoperative treatment and was admitted for planned and elective total hip arthroplasty. PRIOR MEDICAL HISTORY: The patient's prior medical history and physical exam are documented in his h ospital record. HOSPITAL COURSE: The patient was admitted and underwent surgery, which he tolerated well. In the po stoperative period, he was placed on the medical/surgical floor, receiving standard care after total hip arthroplasty and this included early mobilization with therapy with full weightbearing, IV antibi otics, DVT prophylaxis, and physical therapy. The patient did very well in the postoperative course to the point that he was independently getting out of bed and managing pain with p.o. medication at t he time of discharge. At this time, he was discharged to home and his discharge medications were his preoperative medications with the addition of aspirin and pain medicine if needed, hydrocodone. His office visit was to be in the [facility] within a week, and he was to keep his silver dressin g in place over his hip, shower with the dressing covered, and continue with in-home ambulation with his walker. TD: 02/03/2018 11:45
== END 2018-02-01 14:34 | disposition home or self-care (01) | DRG 470 ==
LOC: MS2 08:56
PROVIDERS: ADMIT Orthopaedic Surgery; ATTEND Orthopaedic Surgery
PROC: 0SRB0JZ Replacement of Left Hip Joint with Synthetic Substitute, Open Approach (ICD-10-PCS; principal; 2018-01-29 10:15)
DX: M16.12 Unilateral primary osteoarthritis, left hip (principal); I10 Essential (primary) hypertension; Z96.643 Presence of artificial hip joint, bilateral; Z87.891 Personal history of nicotine dependence; Z79.899 Other long term (current) drug therapy
CPT/HCPCS: 36415; 80048; 85025; 85027

== ENCOUNTER 2018-12-09 09:21 | Outpatient (CLI) | payer MEDICARE, OTHER ==
[2018-12-09 18:40] LABS: ABSOLUTE RETICS # AUTO 0.068 10^6/uL (0.020-0.110); BASOPHILS % (AUTO) 0.7 %; EOSINOPHILS # (AUTO) 0.2 10^3/uL (0.0-0.7); EOSINOPHILS % (AUTO) 4.3 %; HGB - HEMOGLOBIN 12.7 g/dL (14.0-18.0); LYMPHOCYTES # (AUTO) 1.8 10^3/uL (1.5-3.5); LYMPHOCYTES % (AUTO) 32.9 %; MEAN CORPUSCULAR HEMOGLOBIN 29.7 pg (27.0-31.0); MEAN CORPUSCULAR HGB CONC 32.7 g/dL (32.0-36.0); MEAN CORPUSCULAR VOLUME 90.7 fL (80.0-94.0); MEAN PLATELET VOLUME 10.3 fL (7.4-11.4); MONOCYTES # (AUTO) 0.7 10^3/uL (0.0-1.0); MONOCYTES % (AUTO) 12.3 %; NEUTROPHILS # (AUTO) 2.7 10^3/uL (1.5-6.6); NEUTROPHILS % (AUTO) 49.6 %; PLT - PLATELET COUNT 182 10^3/uL (130-450); RED BLOOD COUNT 4.28 10^6/uL (4.70-6.10); RED CELL DISTRIBUTION WIDTH 12.7 % (12.0-15.0); WHITE BLOOD COUNT 5.4 x10^3/uL (4.8-10.8)
[2018-12-09 18:58] LABS: ALBUMIN/GLOBULIN RATIO 1.5 (1.0-2.2); ALKALINE PHOSPHATASE 54 IU/L (42-121); ALT ALANINE AMINOTRANSFERASE 17 IU/L (10-60); AST ASPARTATE AMINOTRANSFERASE 27 IU/L (10-42); BILIRUBIN,TOTAL 0.7 mg/dL (0.2-1.0); BUN - BLOOD UREA NITROGEN 17 mg/dL (6-20); CALCIUM 9.7 mg/dL (8.5-10.3); CARBON DIOXIDE - CO2 29 mmol/L (21-32); CHLORIDE 99 mmol/L (101-111); CREATININE 1.1 mg/dL (0.6-1.2); GFR - MDRD 66 (>89); GLUCOSE 93 mg/dL (70-100); SODIUM 134 mmol/L (135-145); TOTAL PROTEIN 6.6 g/dL (6.7-8.2)
[2018-12-09 19:12] LABS: BILIRUBIN,URINE NEGATIVE (NEGATIVE); GLUCOSE, URINE (UA) NEGATIVE (NEGATIVE); KETONES,URINE (UA) NEGATIVE (NEGATIVE); LEUKOCYTE ESTERASE, URINE NEGATIVE (NEGATIVE); NITRITE,URINE NEGATIVE (NEGATIVE); OCCULT BLOOD,URINE NEGATIVE (NEGATIVE); PROTEIN,URINE 100 mg/dL (NEGATIVE); UROBILINOGEN,URINE 0.2 (NORMAL) E.U./dL (NORMAL)
[2018-12-09 19:14] LABS: CLARITY,URINE CLEAR (CLEAR)
[2018-12-09 19:55] LABS: BACTERIA,URINE None Seen /HPF (None Seen); RBC,URINE None Seen /HPF (0-5); SQUAMOUS EPITHELIAL CELL,UR NONE SEEN (<= Few)
[2018-12-09 19:57] LABS: CASTS, URINE 3-5 Hyaline Casts /LPF
[2018-12-09 20:05] LABS: CRP - C-REACTIVE PROTEIN < 1.0 mg/dL (0-1.0)
== END 2018-12-09 09:22 | disposition home or self-care (01) ==
LOC: LAB.S 09:21
PROVIDERS: ATTEND Family Medicine
DX: R42 Dizziness and giddiness (principal); Z85.528 Personal history of other malignant neoplasm of kidney; N40.0 Benign prostatic hyperplasia without lower urinary tract symptoms; D64.9 Anemia, unspecified
CPT/HCPCS: 36415; 80053; 81001; 82607; 82746; 85025; 85044; 85651; 86140; G0103; 81003; 84153; 85610; 87086

== ENCOUNTER 2019-07-22 08:00 | Outpatient (CLI) | payer MEDICARE, OTHER ==
[2019-07-22 17:46] LABS: BASOPHILS % (AUTO) 0.4 %; EOSINOPHILS # (AUTO) 0.4 10^3/uL (0.0-0.7); EOSINOPHILS % (AUTO) 8.4 %; HGB - HEMOGLOBIN 11.9 g/dL (14.0-18.0); LYMPHOCYTES # (AUTO) 1.6 10^3/uL (1.5-3.5); LYMPHOCYTES % (AUTO) 33.6 %; MEAN CORPUSCULAR HGB CONC 34.2 g/dL (32.0-36.0); MEAN CORPUSCULAR VOLUME 90.6 fL (80.0-94.0); MEAN PLATELET VOLUME 10.6 fL (7.4-11.4); MONOCYTES # (AUTO) 0.6 10^3/uL (0.0-1.0); MONOCYTES % (AUTO) 13.4 %; NEUTROPHILS # (AUTO) 2.1 10^3/uL (1.5-6.6); PLT - PLATELET COUNT 193 10^3/uL (130-450); RED BLOOD COUNT 3.84 10^6/uL (4.70-6.10); RED CELL DISTRIBUTION WIDTH 12.3 % (12.0-15.0); WHITE BLOOD COUNT 4.8 x10^3/uL (4.8-10.8)
[2019-07-22 17:57] LABS: CREATININE 1.1 mg/dL (0.6-1.2)
== END 2019-07-22 23:59 | disposition home or self-care (01) ==
LOC: LAB.WCP 08:00
PROVIDERS: ATTEND Registered Nurse
DX: M25.473 Effusion, unspecified ankle (principal)
CPT/HCPCS: 36415; 80048; 85025

== ENCOUNTER 2019-12-12 10:54 | Outpatient (CLI) | payer MEDICARE, OTHER ==
[2019-12-12 15:47] LABS: BASOPHILS % (AUTO) 0.4 %; EOSINOPHILS # (AUTO) 0.3 10^3/uL (0.0-0.7); EOSINOPHILS % (AUTO) 4.9 %; HGB - HEMOGLOBIN 13.4 g/dL (14.0-18.0); LYMPHOCYTES # (AUTO) 1.9 10^3/uL (1.5-3.5); LYMPHOCYTES % (AUTO) 36.3 %; MEAN CORPUSCULAR HEMOGLOBIN 31.4 pg (27.0-31.0); MEAN CORPUSCULAR HGB CONC 34.2 g/dL (32.0-36.0); MEAN CORPUSCULAR VOLUME 91.8 fL (80.0-94.0); MONOCYTES # (AUTO) 0.7 10^3/uL (0.0-1.0); MONOCYTES % (AUTO) 13.7 %; NEUTROPHILS # (AUTO) 2.3 10^3/uL (1.5-6.6); NEUTROPHILS % (AUTO) 44.5 %; PLT - PLATELET COUNT 220 10^3/uL (130-450); RED BLOOD COUNT 4.27 10^6/uL (4.70-6.10); WHITE BLOOD COUNT 5.1 x10^3/uL (4.8-10.8)
[2019-12-12 16:00] LABS: ALBUMIN 3.7 g/dL (3.2-5.5); ALBUMIN/GLOBULIN RATIO 1.4 (1.0-2.2); BILIRUBIN,TOTAL 0.5 mg/dL (0.2-1.0); CALCIUM 9.6 mg/dL (8.5-10.3); CREATININE 1.1 mg/dL (0.6-1.2); TOTAL PROTEIN 6.3 g/dL (6.7-8.2)
== END 2019-12-12 10:55 | disposition home or self-care (01) ==
LOC: LAB.S 10:54
PROVIDERS: ATTEND Registered Nurse
DX: D64.9 Anemia, unspecified (principal); Z86.39 Personal history of other endocrine, nutritional and metabolic disease; I10 Essential (primary) hypertension; Z85.528 Personal history of other malignant neoplasm of kidney; E87.1 Hypo-osmolality and hyponatremia; R97.20 Elevated prostate specific antigen [PSA]; Z12.5 Encounter for screening for malignant neoplasm of prostate; N40.0 Benign prostatic hyperplasia without lower urinary tract symptoms
CPT/HCPCS: 36415; 80053; 84153; 85025

== ENCOUNTER 2020-05-22 09:05 | Outpatient (CLI) | payer MEDICARE, OTHER ==
[2020-05-22 15:04] LABS: BASOPHILS # (AUTO) 0.1 10^3/uL (0.0-0.1); EOSINOPHILS # (AUTO) 0.3 10^3/uL (0.0-0.7); EOSINOPHILS % (AUTO) 6.6 %; HCT - HEMATOCRIT 40.7 % (42.0-52.0); HGB - HEMOGLOBIN 13.6 g/dL (14.0-18.0); LYMPHOCYTES # (AUTO) 2.2 10^3/uL (1.5-3.5); LYMPHOCYTES % (AUTO) 45.8 %; MEAN CORPUSCULAR HEMOGLOBIN 30.4 pg (27.0-31.0); MEAN CORPUSCULAR HGB CONC 33.4 g/dL (32.0-36.0); MEAN CORPUSCULAR VOLUME 90.8 fL (80.0-94.0); MEAN PLATELET VOLUME 10.8 fL (7.4-11.4); MONOCYTES # (AUTO) 0.5 10^3/uL (0.0-1.0); MONOCYTES % (AUTO) 10.1 %; NEUTROPHILS # (AUTO) 1.8 10^3/uL (1.5-6.6); NEUTROPHILS % (AUTO) 36.3 %; PLT - PLATELET COUNT 171 10^3/uL (130-450); RED BLOOD COUNT 4.48 10^6/uL (4.70-6.10); WHITE BLOOD COUNT 4.8 x10^3/uL (4.8-10.8)
[2020-05-22 15:21] LABS: ALBUMIN 4.2 g/dL (3.2-5.5); ALBUMIN/GLOBULIN RATIO 1.6 (1.0-2.2); BILIRUBIN,TOTAL 0.7 mg/dL (0.2-1.0); CALCIUM 9.6 mg/dL (8.5-10.3); CREATININE 1.1 mg/dL (0.6-1.2); POTASSIUM 4.1 mmol/L (3.5-5.0); TOTAL PROTEIN 6.9 g/dL (6.7-8.2)
== END 2020-05-22 09:06 | disposition home or self-care (01) ==
LOC: LAB.S 09:05
PROVIDERS: ATTEND Internal Medicine
DX: I10 Essential (primary) hypertension (principal); R97.20 Elevated prostate specific antigen [PSA]
CPT/HCPCS: 36415; 80053; 84153; 85025